=== PATIENT | male | born 1945 | race Caucasian/White ===

== ENCOUNTER 2017-03-21 06:30 | Emergency (ER) | payer MEDICARE, OTHER ==
[~2017-03-21] VITALS: Ht 172.7 cm; Wt 76.0 kg
[2017-03-21 06:34] VITALS: BP 197/93; PULSE 89; RESP 16; TEMP 98.3; O2SAT 98
[2017-03-21 07:04] VITALS: BP 160/73; PULSE 97; RESP 18; O2SAT 97
[2017-03-21] MEDS ORDERED: SODIUM CHLOR 0.9% 1000 ML INJ 1,000 ML IV ONE (07:12)
[2017-03-21] MEDS ORDERED: SODIUM CHLORIDE 0.9% FLUSH 10 ML FLUSH IVF PRN (07:15)
--- NOTE | 2017-03-21 07:15 | PD ---
HPI Chief Complaint: Hypertension Time Seen by Provider: 07:03 Travel History International Travel<30 days: No Contact w/Intl Traveler<30days: No Traveled to known affect area: No History of Present Illness HPI 71yo M with PMH of HTN, HLD, NIDDM presents to the ED with c/o dizziness for 1 week. States it happens when he gets up from sitting or lying position. Denies any fever, cough, chest pain, sob, n/v, abdominal pain, focal weakness or numbness, tinnitus, spinning of the room. Pt has not seen a PMD for a long time and does not take medications. PFSH Social History Tobacco Use: No Allergies-Medications (Allergen,Severity, Reaction): Coded Allergies: No Known Allergies (Unverified , 03/21/17) Review of Systems Except as stated in HPI: all other systems reviewed are Neg Physical Exam Narrative GENERAL: 71yo M not in distress. SKIN: Focused skin assessment warm/dry. HEAD: Atraumatic. Normocephalic. EYES: Pupils equal and round at 3mm. EOMI. No scleral icterus. No injection or drainage. ENT: No nasal bleeding or discharge. Mucous membranes pink and moist. NECK: Trachea midline. No JVD. CARDIOVASCULAR: Regular rate and rhythm. No murmur appreciated. RESPIRATORY: No accessory muscle use. Clear to auscultation. Breath sounds equal bilaterally. GASTROINTESTINAL: Abdomen soft, non-tender, nondistended. MUSCULOSKELETAL: No obvious deformities. No cyanosis. +Bilateral lower ext edema. NEUROLOGICAL: Awake and alert. No obvious cranial nerve deficits. Motor grossly within normal limits. Normal speech. PSYCHIATRIC: Appropriate mood and affect; insight and judgment normal. Data Data Last Documented VS Vital Signs Date Time Temp Pulse Resp B/P Pulse Ox O2 Delivery O2 Flow Rate FiO2 03/21/17 07:20 89 18 160/72 88 18 164/73 94 18 156/69 03/21/17 07:20 98 Room Air 03/21/17 06:34 98.3 Orders Electrocardiogram (03/21/17 07:12) Basic Metabolic Panel (Bmp) (03/21/17 07:12) Comprehensive Metabolic Panel (03/21/17 07:12) Magnesium (Mg) (03/21/17 07:12) B-Type Natriuretic Peptide (03/21/17 07:12) Troponin I (03/21/17 07:12) Ecg Monitoring (03/21/17 07:12) Iv Access Insert/Monitor (03/21/17 07:12) Oximetry (03/21/17 07:12) Sodium Chloride 0.9% Flush (Ns Flush) (03/21/17 07:15) Sodium Chlor 0.9% 1000 Ml Inj (Ns 1000 M (03/21/17 07:12) Orthostatic Vital Signs (03/21/17 07:12) Urinalysis - C+S If Indicated (03/21/17 08:05) Complete Blood Count With Diff (03/21/17 08:06) Labs Laboratory Tests Test 03/21/17 03/21/17 07:20 08:22 Sodium Level 139 MEQ/L Potassium Level 3.6 MEQ/L Chloride Level 103 MEQ/L Carbon Dioxide Level 29.3 MEQ/L Anion Gap 7 MEQ/L Blood Urea Nitrogen 13 MG/DL Creatinine 1.29 MG/DL Estimat Glomerular Filtration 55 ML/MIN Rate Random Glucose 278 MG/DL Calcium Level 8.2 MG/DL Magnesium Level 1.8 MG/DL Total Bilirubin 0.2 MG/DL Aspartate Amino Transf 16 U/L (AST/SGOT) Alanine Aminotransferase 17 U/L (ALT/SGPT) Alkaline Phosphatase 106 U/L Troponin I 0.03 NG/ML B-Type Natriuretic Peptide 732 PG/ML Total Protein 7.5 GM/DL Albumin 3.1 GM/DL White Blood Count 8.1 TH/MM3 Red Blood Count 4.74 MIL/MM3 Hemoglobin 13.1 GM/DL Hematocrit 39.6 % Mean Corpuscular Volume 83.6 FL Mean Corpuscular Hemoglobin 27.5 PG Mean Corpuscular Hemoglobin 32.9 % Concent Red Cell Distribution Width 13.2 % Platelet Count 167 TH/MM3 Mean Platelet Volume 10.6 FL Neutrophils (%) (Auto) 64.1 % Lymphocytes (%) (Auto) 21.9 % Monocytes (%) (Auto) 8.9 % Eosinophils (%) (Auto) 3.7 % Basophils (%) (Auto) 1.4 % Neutrophils # (Auto) 5.2 TH/MM3 Lymphocytes # (Auto) 1.8 TH/MM3 Monocytes # (Auto) 0.7 TH/MM3 Eosinophils # (Auto) 0.3 TH/MM3 Basophils # (Auto) 0.1 TH/MM3 CBC Comment DIFF FINAL Differential Comment Urine Color YELLOW Urine Turbidity CLEAR Urine pH 6.0 Urine Specific [place] 1.026 Urine Protein 300 mg/dL Urine Glucose (UA) 1000 mg/dL Urine Ketones NEG mg/dL Urine Occult Blood SMALL Urine Nitrite NEG Urine Bilirubin NEG Urine Urobilinogen LESS THAN 2.0 MG/DL Urine Leukocyte Esterase NEG Urine RBC 1 /hpf Urine WBC 1 /hpf Urine Hyaline Casts 3 /lpf Urine Mucus FEW /lpf Microscopic Urinalysis Comment CULT NOT INDICATED MDM Medical Decision Making Medical Screen Exam Complete: Yes Emergency Medical Condition: Yes Interpretation(s) EKG: NSR 87bpm. Normal axis. Q waves III, aVF. Mild ST depression V5, V6. Differential Diagnosis Orthostatic hypotension vs. dehydration vs. UTI vs. arrhythmia Narrative Course 71yo well appearing male here with complaint of dizziness when he gets up from sitting. Pt does have some EKG changes and has no prior EKG to compare to. However, pt has no chest pain or sob and is currently not dizzy. Pt needs to follow up with cardiology as an outpatient. Pt does not want to stay for further work up. Labs reviewed, no leukocytosis. H/H normal. Troponin negative at 0.03. BNP is elevated at 732. Pt has bilateral lower ext edema but denies any trouble breathing or pain or worsening sob when he exerts himself. Orthostatic negative. Pt states he has to leave and did not want to wait for his UA results or obtain CT brain. AMA: The risks of leaving against medical advice without further evaluation treatment were discussed with the patient. These risks include cardiac dysfunction, cardiac dysrhythmia, possible heart attack, possible stroke or . The patient indicated understanding of these risks and appeared to have the capacity to make this decision. Diagnosis Primary Impression: Dizziness Referrals: Jimi Archer MD call for appointment Abnormal EKG, no cardiology follow up Patient Instructions: General Instructions Departure Forms: Tests/Procedures Additional Instructions: Please follow up with [facility] to obtain a PMD for your chronic medical problems. Please also follow up with cardiology as an outpatient for abnormal EKG changes. Return to the ED if you change your mind. Med/Other Pt SpecificInfo: No Change to Meds Disposition: 07 AGAINST MEDICAL ADVICE Condition: Stable Meera Aguilar DO Mar 21, 2017 07:15
[2017-03-21 07:20] VITALS: BP_SYST 156; BP_SYST 160; BP_SYST 164; BP_DIAS 69; BP_DIAS 72; BP_DIAS 73; RESP 18; O2SAT 98
[2017-03-21 07:58] LABS: ALT (GPT) 17 U/L (12-78); ANION GAP 7 MEQ/L (5-15); AST (GOT) 16 U/L (15-37); BICARBONATE 29.3 MEQ/L (21.0-32.0); BLOOD UREA NITROGEN 13 MG/DL (7-18); CHLORIDE 103 MEQ/L (98-107); GLOMERULAR FILTRATION RATE 55 ML/MIN (>89); MAGNESIUM 1.8 MG/DL (1.5-2.5); POTASSIUM 3.6 MEQ/L (3.5-5.1); SODIUM (NA) 139 MEQ/L (136-145)
[2017-03-21 07:59] LABS: ALKALINE PHOSPHATASE 106 U/L (45-117); TOTAL BILIRUBIN ADULT 0.2 MG/DL (0.2-1.0)
[2017-03-21 08:37] LABS: AUTOMATED NEUTROPHIL # 5.2 TH/MM3 (1.8-7.7); BASOPHIL # 0.1 TH/MM3 (0-0.2); BASOPHIL % 1.4 % (0.0-2.0); EOSINOPHIL # 0.3 TH/MM3 (0-0.4); EOSINOPHIL % 3.7 % (0.0-4.0); HEMATOCRIT 39.6 % (39.0-51.0); HEMO FLAGS DIFF FINAL; LYMPH % 21.9 % (9.0-44.0); LYMPHOCYTE # 1.8 TH/MM3 (1.0-4.8); MEAN CELL VOLUME 83.6 FL (80.0-100.0); MEAN CORPUSCULAR HEMOGLOBIN 27.5 PG (27.0-34.0); MEAN CORPUSCULAR HGB CONC 32.9 % (32.0-36.0); MONO % 8.9 % (0.0-8.0); NEUT % 64.1 % (16.0-70.0); PLATELET COUNT 167 TH/MM3 (150-450); RED BLOOD COUNT 4.74 MIL/MM3 (4.50-5.90); RED CELL DISTRIBUTION WIDTH 13.2 % (11.6-17.2); WHITE BLOOD COUNT 8.1 TH/MM3 (4.0-11.0)
[2017-03-21 08:45] LABS: BLOOD, URINE SMALL (NEG); COMMENT (UR) CULT NOT INDICATED; CULTURE IF INDICATED CULT NOT INDICATED; GLUCOSE,URINE 1000 mg/dL (NEG); HYALINE CAST, URINE 3 /lpf (RARE); KETONE, URINE NEG (NEG); MUCUS URINE FEW /lpf (OCC); NITRITE,URINE NEG (NEG); URINE COLOR YELLOW (YELLW/STRAW)
--- NOTE | 2017-03-21 13:20 | EKG ---
Date Performed: 03/21/2017 Time Performed: 07:12:32 PTAGE: 71 years EKG: Sinus rhythm WITH SINUS ARRHYTHMIA POSSIBLE INFERIOR MYOCARDIAL INFARCTION NON-SPECIFIC ST/T WAVE CHANGES BORDERL INE ECG NO PREVIOUS TRACING DOCTOR: Jabier Stearns Interpretating Date/Time 03/21/2017 13:19:05
== END 2017-03-21 09:04 | disposition left against medical advice (07) ==
LOC: NEPE 06:30
DX: R42 Dizziness and giddiness (principal); R94.31 Abnormal electrocardiogram [ECG] [EKG]; I10 Essential (primary) hypertension; E78.5 Hyperlipidemia, unspecified; E11.9 Type 2 diabetes mellitus without complications; I49.8 Other specified cardiac arrhythmias
CPT/HCPCS: 80053; 81001; 83735; 83880; 84484; 85025; 93005; 99284; J7030